=== PATIENT | male | born 1990 | race Two or more races ===

== ENCOUNTER 2016-10-01 14:24 | Emergency (ER) | payer SELFPAY ==
[~2016-10-01] VITALS: Ht 167.6 cm; Wt 74.8 kg
[2016-10-01 14:41] VITALS: BP 127/87
[2016-10-01] MEDS ORDERED: PREDNISONE20 MG ORAL (14:57)
[2016-10-01] MEDS ORDERED: BENADRYL25 M3 PO (14:57)
[2016-10-01] MEDS ORDERED: PredniSONE 20mg tab ORAL ONE (15:00)
[2016-10-01 15:06] VITALS: BP 127/87
--- NOTE | 2016-10-01 15:26 | Emergency Room Report ---
History of Present Illness General Chief Complaint: Skin Rash/Abscess Present Illness HPI The patient is a 26-year-old male presenting with a rash to both arms, abdomen, and legs. The patient states that he was working outside with a lot of brush for work 1 week prior and then developed this rash in the following days. Patient denies any pain but does admit to itching. The patient has noticed vesicles on the skin with a clear fluid discharge. The patient states that he has had poison ashok before and this feels similar. The patient has tried over the counter topical cream which has not helped. The patient denies any use of new detergents, clothing, or foods. The patient denies any known allergies. The patient has not used any other medications. The patient denies any other symptoms including N, V, F, chills, cough, SOB Allergies: Coded Allergies: No Known Allergies (Unverified , 10/01/16) Patient History Past Medical History: see triage record Pertinent Family History: none Reviewed Nursing Documentation: PMH: Agreed, PSxH: Agreed Nursing Documentation-PMH Past Medical History: No Stated History Review of Systems All Other Systems: negative except mentioned in HPI Physical Exam Vital Signs Date Time Temp Pulse Resp B/P Pulse Ox O2 Delivery O2 Flow Rate FiO2 10/01/16 14:41 97.9 64 18 127/87 100 Room Air Sp02 EP Interpretation: reviewed, normal General Appearance: no apparent distress, alert, GCS 15, non-toxic Head: normocephalic, atraumatic Eyes: bilateral eye PERRL, bilateral eye normal inspection ENT: hearing grossly normal, normal pharynx, no angioedema, normal voice, uvula midline, moist mucus membranes Neck: full range of motion, supple, no bony tend, supple/symm/no masses Respiratory: chest non-tender, lungs clear, normal breath sounds, no respiratory distress, no accessory muscle use, no wheezing, speaking full sentences Cardiovascular #1: regular rate, rhythm, no edema Gastrointestinal: normal bowel sounds, non tender, soft, non-distended, no guarding, no rebound Genitourinary: normal inspection, no CVA tenderness Musculoskeletal: back normal, gait/station normal, normal range of motion, non- tender Neurologic: alert, oriented x3, responsive, motor strength/tone normal, sensory intact, speech normal Psychiatric: judgement/insight normal, memory normal, mood/affect normal, no suicidal/homicidal ideation Reflexes: 3+ bicep (R), 3+ bicep (L), 3+ tricep (R), 3+ tricep (L), 3+ knee (R) , 3+ knee (L) Skin: rash - diffuse erythema with fluid filled vesicles of bilat arms, abdomen , and distal legs Medical Decision Making PA Attestation Dr. Travis is my supervising physician. Patient management was discussed with my supervising physician Diagnostic Impression: Primary Impression: Contact dermatitis ER Course The patient is a 26-year-old male presenting with a rash to both arms, abdomen, and legs. Ddx considered include but not limited to insect bite, contact dermatitis, eczema, cellulitis PE: vitals WNL. afebrile. NAD diffuse erythema with clear fluid filled vesicles of bilat arms, abdomen, and distal legs. Non tender. Pt given a dose of prednisone in the ER The patient will be discharged home with prescription for prednisone and Benadryl. ER precautions are given Last Vital Signs Date Time Temp Pulse Resp B/P Pulse Ox O2 Delivery O2 Flow Rate FiO2 10/01/16 15:06 97.9 18 127/87 100 Room Air 10/01/16 14:41 64 Status: improved Disposition: HOME, SELF-CARE Condition: Improved Scripts Diphenhydramine HCl (Benadryl) 25 Mg Capsule 50 MG PO Q8HR, #20 CAP Prov: GRAHAM [email or web address].A. 10/01/16 Prednisone* (PREDNISONE*) 20 Mg Tablet 40 MG ORAL DAILY, #8 TAB Prov: GRAHAM [email or web address]. 10/01/16 Referrals: NOT CHOSEN [facility]/MD,REFERRING (PCP) Patient Instructions: Rash Additional Instructions: I discussed my findings with the patient. All questions and concerns have been answered. Treatment and medication compliance have been addressed. I advised the patient that they need to follow up with PMD in 3-5 days. Return to ED if symptoms worsen, new symptoms arise, or if needed for any reason. Patient verbalized understanding of discharge instructions. GRAHAM RODRIGUEZ Oct 01, 2016 15:26
== END 2016-10-01 15:10 | disposition home or self-care (01) ==
LOC: EMR 15:05
DX: L25.9 Unspecified contact dermatitis, unspecified cause (principal)
CPT/HCPCS: 99284